=== PATIENT | female | born 1965 | race Caucasian/White ===

== ENCOUNTER 2020-04-26 11:35 | Emergency (ER) | payer MEDICARE, MEDICAID ==
[~2020-04-26] VITALS: Ht 157.5 cm; Wt 79.0 kg
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
--- NOTE | 2020-04-26 14:21 | NUR ---
Pt reports taking large doses of pain medication including norco and morphine prior to arrival today.
[2020-04-26] MEDS ORDERED: iohexol 300mg/ml 100ml inj. ONE (14:49)
[2020-04-26 16:03] LABS: ALANINE AMINOTRANSFERASE 23 U/L (12-78); ALBUMIN 3.2 G/DL (3.4-5.0); ALKALINE PHOSPHATASE 91 IU/L (46-116); ANION GAP 8 (8-16); ASPARTATE AMINO TRANSFERASE 18 U/L (10-37); BILIRUBIN,TOTAL 0.4 MG/DL (0.1-1.0); BLOOD UREA NITROGEN 20 MG/DL (7-18); CALCIUM 8.9 MG/DL (8.5-10.1); CHLORIDE 101 MMOL/L (99-107); CREATININE 0.91 MG/DL (0.40-0.90); GLUCOSE 287 MG/DL (70-104); POTASSIUM 3.7 MMOL/L (3.5-5.1); SODIUM 137 MMOL/L (135-145); TOTAL CARBON DIOXIDE 28.3 MMOL/L (24-32); TOTAL PROTEIN 6.5 G/DL (6.4-8.2); eGFR 64 ML/MIN
--- NOTE | 2020-04-26 16:14 | NUR ---
pt to CT
[2020-04-26 16:49] VITALS: BP 134/68
== END 2020-04-26 17:40 | disposition home or self-care (01) ==
LOC: ER 11:36
DX: S80.11XA Contusion of right lower leg, initial encounter (principal); M25.551 Pain in right hip; Z88.2 Allergy status to sulfonamides; W01.198A Fall on same level from slipping, tripping and stumbling with subsequent striking against other object, initial encounter; Y93.89 Activity, other specified; Y92.89 Other specified places as the place of occurrence of the external cause; Y99.9 Unspecified external cause status
CPT/HCPCS: 36415; 71260; 73564; 73610; 74177; 80053; 99285; Q9967

== ENCOUNTER 2020-06-05 08:45 | Emergency (ER) | payer MEDICARE, MEDICAID ==
[2020-06-05] MEDS ORDERED: NAPR-56 PO (09:03)
[2020-06-05] MEDS ORDERED: LIDO1ADH TOP (09:03)
== END 2020-06-05 09:36 | disposition home or self-care (01) ==
LOC: ER 08:46
DX: R07.89 Other chest pain (principal); R07.81 Pleurodynia; M25.559 Pain in unspecified hip; Z88.2 Allergy status to sulfonamides; Z79.899 Other long term (current) drug therapy; W18.39XA Other fall on same level, initial encounter; Y93.89 Activity, other specified; Y92.89 Other specified places as the place of occurrence of the external cause; Y99.8 Other external cause status
CPT/HCPCS: 99282

== ENCOUNTER 2020-07-01 12:58 | Emergency (ER) | payer BC, MEDICAID ==
[~2020-07-01] VITALS: Ht 160 cm; Wt 71.8 kg
[~2020-07-01 12:58] MED LIST: LIDO1ADH TOP; NAPR-56 PO
[2020-07-01] MEDS ORDERED: buprenorphine/naloxone 8MG-2MG SUBlingual film SL STA ×2 (14:08→15:07)
[2020-07-01] MEDS ORDERED: normal saline 1000ML IV soln IVB ONE (14:10)
[2020-07-01 14:42] LABS: BASOPHILS # (AUTO) 0.1 X10'3 (0-0.2); BASOPHILS % (AUTO) 1.3 % (0-1); EOSINOPHILS % (AUTO) 0.2 % (0-6); HEMATOCRIT 43.2 % (35.0-45.0); HEMOGLOBIN 14.5 g/dl (12.0-16.0); LYMPHOCYTES # (AUTO) 1.8 X10'3 (1.1-4.8); MEAN CORPUSCULAR HEMOGLOBIN 29.8 PG (27.0-31.0); MEAN CORPUSCULAR HGB CONC 33.7 g/dL (33.0-36.5); MEAN CORPUSCULAR VOLUME 88.4 FL (78-98); MONOCYTES # (AUTO) 0.6 X10'3 (0-0.9); MONOCYTES % (AUTO) 5.7 % (2-12); NEUTROPHILS # (AUTO) 7.5 X10'3 (1.8-7.7); NEUTROPHILS % (AUTO) 74.8 % (42-75); PLATELET COUNT 396 X10'3 (140-440); RED BLOOD COUNT 4.88 X10'6 (4.20-5.60); RED CELL DISTRIBUTION WIDTH 12.3 % (11.5-14.5)
[2020-07-01 14:59] LABS: ALANINE AMINOTRANSFERASE 20 U/L (12-78); ALBUMIN 3.6 G/DL (3.4-5.0); ALBUMIN/GLOBULIN RATIO 0.9 (1.1-1.5); ALKALINE PHOSPHATASE 95 IU/L (46-116); ANION GAP 11 (8-16); ASPARTATE AMINO TRANSFERASE 14 U/L (10-37); BILIRUBIN,TOTAL 0.5 MG/DL (0.1-1.0); BLOOD UREA NITROGEN 19 MG/DL (7-18); CALCIUM 9.7 MG/DL (8.5-10.1); CHLORIDE 99 MMOL/L (99-107); CREATININE 0.95 MG/DL (0.40-0.90); GLUCOSE 404 MG/DL (70-104); POTASSIUM 3.2 MMOL/L (3.5-5.1); SODIUM 137 MMOL/L (135-145); TOTAL CARBON DIOXIDE 26.7 MMOL/L (24-32); TOTAL PROTEIN 7.7 G/DL (6.4-8.2); eGFR 61 ML/MIN
[2020-07-01] MEDS ORDERED: potassium Cl 20 mEq SR tablet PO STA (15:06)
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
[2020-07-01 16:38] VITALS: BP 128/56
== END 2020-07-01 16:59 | disposition home or self-care (01) ==
LOC: ER 12:59
DX: E87.6 Hypokalemia (principal); F11.23 Opioid dependence with withdrawal; R06.02 Shortness of breath; R19.7 Diarrhea, unspecified; R53.83 Other fatigue; R11.2 Nausea with vomiting, unspecified; M79.7 Fibromyalgia; Z88.2 Allergy status to sulfonamides; Z79.899 Other long term (current) drug therapy
CPT/HCPCS: 36415; 80053; 85025; 93005; 99284; J7030

== ENCOUNTER 2020-07-02 15:49 | Emergency (ER) | payer BC, MEDICAID ==
[~2020-07-02] VITALS: Ht 160 cm; Wt 71.8 kg
[2020-07-02] MEDS ORDERED: buprenorphine/naloxone 8MG-2MG SUBlingual film SL STA ×2 (16:52→18:52)
[2020-07-02 19:00] VITALS: BP 107/66
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
[2020-07-03] MEDS ORDERED: BUPR1TAB45 SL (15:52)
== END 2020-07-02 19:32 | disposition home or self-care (01) ==
LOC: ER 15:50
DX: F11.23 Opioid dependence with withdrawal (principal); R53.83 Other fatigue; G89.29 Other chronic pain; M79.7 Fibromyalgia; M19.90 Unspecified osteoarthritis, unspecified site; Z88.2 Allergy status to sulfonamides; Z79.899 Other long term (current) drug therapy
CPT/HCPCS: 99283

== ENCOUNTER 2020-07-03 12:25 | Emergency (ER) | payer BC, MEDICAID ==
[~2020-07-03] VITALS: Ht 160 cm; Wt 71.8 kg
[2020-07-03] MEDS ORDERED: buprenorphine/naloxone 8MG-2MG SUBlingual film SL STA (15:10)
[2020-07-03] MEDS ORDERED: BUPR1TAB45 SL (15:52)
[2020-07-03 15:56] VITALS: BP 119/46
== END 2020-07-03 16:16 | disposition home or self-care (01) ==
LOC: ER 12:26
DX: Z51.81 Encounter for therapeutic drug level monitoring (principal); F11.23 Opioid dependence with withdrawal; G89.29 Other chronic pain; M79.7 Fibromyalgia; M19.90 Unspecified osteoarthritis, unspecified site; Z88.2 Allergy status to sulfonamides; Z79.899 Other long term (current) drug therapy
CPT/HCPCS: 99283

== ENCOUNTER 2020-07-08 11:03 | Emergency (ER) | payer BC, MEDICAID ==
[~2020-07-08] VITALS: Ht 157.5 cm; Wt 70.9 kg
[~2020-07-08 11:03] MED LIST changes: +BUPR1TAB45 SL; -NAPR-56 PO
[2020-07-08] MEDS ORDERED: LIDOcaine 1% 30ml preserv. free vial SQ STA (11:10)
[2020-07-08] MEDS ORDERED: DOXYCYCLINE 100MG CAPSULE PO STA (11:10)
[2020-07-08] MEDS ORDERED: DOXY100C77 PO (12:20)
[2020-07-08] MEDS ORDERED: HYDR-3965 PO (12:25)
[2020-07-08 13:01] VITALS: BP 130/42
== END 2020-07-08 13:00 | disposition home or self-care (01) ==
LOC: ER 11:04
DX: L03.012 Cellulitis of left finger (principal); G89.29 Other chronic pain; M79.7 Fibromyalgia; M19.90 Unspecified osteoarthritis, unspecified site; Z88.2 Allergy status to sulfonamides; Z79.2 Long term (current) use of antibiotics; Z79.899 Other long term (current) drug therapy
CPT/HCPCS: 20611; 26010; 99283; 99284